=== PATIENT | female | born 1950 | race Caucasian/White ===

== ENCOUNTER → 2018-08-01 | Outpatient (CLI) | payer BC ==
[~2018-08-01] MED LIST: ASCO50TA PO; PROBCAP14 PO
--- NOTE | 2018-08-02 00:49 | ECGEPIP ---
Stationary ECG Study [facility] Test Date: 2018-08-01 Pat Name: MANNY SYED Department: Room: - Gender: F Can Tester: MCKAY : 1950 Requested By: LUIGI Gonzalez Order Number: [id number] Reading MD: Marcell Alarcon Measurements Intervals [place] Rate: 72 P: 51 HI: 177 QRS: 20 QRSD: 88 T: 56 QT: 368 QTc: 403 Interpretive Statements SINUS RHYTHM POSSIBLE SEPTAL MYOCARDIAL INFARCTION, PROBABLY OLD LOW-VOLTAGE QRS COMPLEXES IN THE LIMB LEADS NO PRIOR TRACING FOR COMPARISON Electronically Signed On 08-02-2018 0:48:41 EDT by Marcell Alarcon
== END ==
LOC: M EKG 16:18
PROVIDERS: ATTEND Anesthesiology
DX: Z01.818 Encounter for other preprocedural examination (principal)

== ENCOUNTER 2018-08-02 05:53 | Day surgery (SDC) | payer BC ==
[2018-08-02] VITALS (7 sets, daily range): BP systolic 99–115; BP diastolic 51–74
[~2018-08-02] VITALS: Ht 167.6 cm; Wt 59.9 kg
[2018-08-02] MEDS ORDERED: LIDOCAINE 1% MDV 20ML VIAL SQ PRN (06:00)
[2018-08-02 06:26] LABS: HEMATOCRIT 44.1 % (36.0-47.0); HEMOGLOBIN 14.3 g/dl (12.0-15.5); MEAN CORPUSCULAR HEMOGLOBIN 31.7 pg (27.0-33.0); MEAN CORPUSCULAR HGB CONC 32.4 g/dl (32.0-36.5); MEAN CORPUSCULAR VOLUME 97.8 fl (80.0-96.0); PLATELET COUNT, AUTOMATED 252 10^3/uL (150-450); RED BLOOD COUNT 4.51 10^6/uL (4.00-5.40); WHITE BLOOD COUNT 5.7 10^3/uL (4.0-10.0)
[2018-08-02] MEDS ORDERED: LR 1,000 ML IV SCH ×2 (06:30→12:00)
[2018-08-02] MEDS ORDERED: SCOPOLAMINE 1MG TRANSDERMAL PATCH As Ordered ONE (07:08)
[2018-08-02] MEDS ORDERED: ROCURONIUM BROMIDE 50 MG/5 ML VIAL As Ordered ONE (07:12)
[2018-08-02] MEDS ORDERED: LIDOCAINE 2% INJ 100 MG/5 ML SDV (FOR ANES.) As Ordered ONE (07:12)
[2018-08-02] MEDS ORDERED: fentaNYL 250 MCG/5 ML INJECTION (J3010) As Ordered ONE (07:12)
[2018-08-02] MEDS ORDERED: PROPOFOL 200 MG/20 ML VIAL As Ordered ONE (07:12)
[2018-08-02] MEDS ORDERED: MIDAZOLAM INJ 2 MG/2 ML VIAL (J2250) As Ordered ONE (07:12)
[2018-08-02] MEDS ORDERED: VASOPRESSIN INJ 20 UNITS/ML VIAL As Ordered ONE (07:16)
[2018-08-02] MEDS ORDERED: LR 1,000 ML IV ONE (07:30)
[2018-08-02] MEDS ORDERED: dexameTHASONE 4 MG/ML 1ML VIAL (J1100) As Ordered ONE (07:50)
[2018-08-02] MEDS ORDERED: PHENAZOPYRIDINE 100 MG TAB PO ONE (08:00)
[2018-08-02] MEDS ORDERED: ePHEDrine SULFATE 25 MG/5 ML(5MG/ML) SYRINGE As Ordered ONE (08:08)
[2018-08-02] MEDS ORDERED: SCOPOLAMINE 1MG TRANSDERMAL PATCH TOP ONE (08:15)
[2018-08-02] MEDS ORDERED: ONDANSETRON 4MG/2ML VIAL (J2405) As Ordered ONE (08:44)
[2018-08-02] MEDS ORDERED: GLYCOPYRROLATE INJ 0.2 MG/ML 2 ML VIAL As Ordered ONE (08:44)
[2018-08-02] MEDS ORDERED: METOCLOPRAMIDE INJ 10MG/2ML VIAL (J2765) As Ordered ONE (08:44)
[2018-08-02] MEDS ORDERED: KETOROLAC 60 MG/2 ML VIAL (J1885) As Ordered ONE (08:44)
[2018-08-02] MEDS ORDERED: NEOSTIGMINE 10 MG/10 ML VIAL (J2710) As Ordered ONE (08:48)
[2018-08-02] MEDS ORDERED: fentaNYL 100 MCG/2 ML INJECTION (J3010) As Ordered ONE (10:20)
[2018-08-02] MEDS ORDERED: MORPHINE 1MG/ML IN 0.9% NACL 100ML IV BAG As Ordered ONE (11:18)
[2018-08-02] MEDS ORDERED: ACETAMINOPHEN 1000MG 100ML IV BTL (OFIRMEV) (J0131 PER 10MG) As Ordered ONE (11:57)
[2018-08-02] MEDS ORDERED: NALOXONE INJ 0.4 MG/1 ML VIAL (J2310) IV PRN (12:00)
[2018-08-02] MEDS ORDERED: NALBUPHINE HCL 10 MG/ML AMP (J2300) IV PRN (12:00)
[2018-08-02] MEDS: LR 1,000 ML IV SCH ×2 (12:00→18:00)
[2018-08-02] MEDS ORDERED: diphenhydrAMINE INJ 50MG/ML VIAL (J1200) IV PRN (12:00)
[2018-08-02] MEDS ORDERED: fentaNYL 100 MCG/2 ML INJECTION (J3010) IV PRN (12:00)
[2018-08-02] MEDS ORDERED: ONDANSETRON 4MG/2ML VIAL (J2405) IV PRN (12:00)
[2018-08-02] MEDS ORDERED: IBUPROFEN 600 MG TAB PO PRN ×2 (12:00→15:00)
[2018-08-02] MEDS ORDERED: MORPHINE 1MG/ML IN 0.9% NACL 100ML IV BAG IV PRN (12:00)
[2018-08-02] MEDS ORDERED: EPIDURAL/PCA KEYS XX PRN (12:00)
[2018-08-02] MEDS ORDERED: PERCOCET 5MG/325MG TAB PO PRN (12:00)
[2018-08-02] MEDS ORDERED: ACETAMINOPHEN *IV* 1,000 MG IV ONE ×2 (12:45)
[2018-08-02] MEDS ORDERED: oxyCODONE 5MG TAB PO PRN (12:45)
--- NOTE | 2018-08-02 14:26 | RO ---
DATE OF PROCEDURE: 08/02/2018 PREPROCEDURE DIAGNOSES/INDICATION FOR SURGERY: Symptomatic prolapse, failed pessary. POSTPROCEDURE DIAGNOSES: Symptomatic prolapse, failed pessary. Additional diagnosis of large left ovarian cyst. PROCEDURE: Total vaginal hysterectomy with bilateral salpingectomy. The patient also then had a left oophorectomy with removal of the cyst. SURGEON: Dr. Urszula Prajapati TUG MASTER: None. ANESTHESIA: General endotracheal. DESCRIPTION OF PROCEDURE: Kenia was brought to the operating room where sufficient general endotracheal anesthesia was induced. She was prepped, draped and positioned in the usual sterile fashion with the bladder emptied and the anterior and posterior aspects of the cervix grasped with a single toothed tenaculum and a circumferential incision was made around the base of the cervix. The cardinal ligaments were isolated, clamped with De Salter clamps, transected and then ligated with #0 Vicryl suture, which was used throughout this portion of the case. Then clamped, transected and ligated the uterosacral ligaments, which were labeled for later reconnection to the cuff and entered the posterior reflection of the peritoneum and the anterior reflection of the peritoneum, displacing the bladder away from the field of dissection. We then carefully clamped, transected and ligated the uterine vasculature until the utero-ovarian ligaments were reached and the round ligaments were reached. These too were clamped, transected and ligated, but a large ovarian cyst was noted. This was brought down with the [place], and it was clear that this was attached to the left ovary. We went ahead and removed the right fallopian tube, the right ovary is just atrophic and barely existent, and then went back up to the left side where the ovary and tube were removed. This cystic lesion was mostly deflated. It did not appear to be leaking until we had removed it, so it did not have any fluid out of it, we did not actually rupture it during the case, it was already soft, which would of course make it not clearly palpable. There were also areas of left ovary that looked atrophic and typical for a 58-year-old. There did not appear to be any excrescences. There did not appear to be any external lesions and it was soft texture, certainly applied lack of internal interesting changes, but I did not open this in the operating room. I did not want any of that on my gloves if there was anything untoward. I did not see any ascites or any other peritoneal findings. We did look because of that finding. From the vaginal aspect, we certainly could not appreciate anything atypical. We then closed the peritoneum and closed any space for enterocele. I did the dissection to the right sacrospinous ligament for the sacrospinous ligament suspension. I then placed two anchors with what I believed at the time to be two #2-0 PDS, and placed those through the vaginal tissue after correcting the cystocele anteriorly with Vicryl, and then we closed the cuff and brought those tissues up and scoped her and saw that there were normal jets of urine bilaterally and good support and then I heard the team in the final count talking about Prolene. The entire case was brought to an abrupt halt and it was determined that I had been given Prolene and not PDS for those sutures, which were of course coming through and through to the vagina, and so all of the repair was broken down as far as all four of those sutures were removed. We then opened the cuff. We still left the anterior repair and closure of the peritoneum, but then redissected up to the ligament and placed two new anchors, so she does have four anchors, but only the four suture of #2-0 PDS delayed absorbable suture. This was then brought back out through the vaginal tissues and on the vaginal cuff reclosed and then resupported, and then she was rescoped, and again, fortunately, she had very good normal jets of urine and evidence of bladder support and no evidence of bladder injury with the anterior repair that we had done prior to lifting up the cuff. We then did a perineorrhaphy with a very short posterior repair, and then completed the case with a Bloom placed in the bladder before she was brought out of the operating room. She did have a little bit more bleeding with the hysterectomy than on average, but the cuff itself did not have significant bleeding with redissection. Estimated blood loss was about 300. Fluid replacement was crystalloid. COMPLICATIONS: She really did not have any complications other than having to repeat that portion of the case and remove those sutures so by the end of the case that was resolved. There was no evidence of injury to the bladder, bowel. Rectal examination at the end of the case was normal. CONDITION AND DISPOSITION: Kenia tolerated the procedure well and was recovering in the recovery room in good condition.
[2018-08-03] VITALS: BP 100/59
[2018-08-03] MEDS: LR 1,000 ML IV SCH (00:30)
[2018-08-03 04:00] VITALS: BP 98/54
[2018-08-03] MEDS ORDERED: NORCO, ANEXSIA 5/325MG TABLET (HYDROcodone/ACETAMINOPHEN) PO PRN (06:00)
[2018-08-03 07:10] LABS: HEMATOCRIT 29.6 % (36.0-47.0); HEMOGLOBIN 9.6 g/dl (12.0-15.5); MEAN CORPUSCULAR HEMOGLOBIN 32.2 pg (27.0-33.0); MEAN CORPUSCULAR HGB CONC 32.4 g/dl (32.0-36.5); MEAN CORPUSCULAR VOLUME 99.3 fl (80.0-96.0); PLATELET COUNT, AUTOMATED 190 10^3/uL (150-450); RED BLOOD COUNT 2.98 10^6/uL (4.00-5.40); WHITE BLOOD COUNT 14.1 10^3/uL (4.0-10.0)
[2018-08-03 08:00] VITALS: BP 103/55
== END 2018-08-03 09:50 | disposition home or self-care (01) ==
LOC: M SDC 05:53 → M PED 13:30 → M SDC 08-03 09:50
PROVIDERS: ATTEND Obstetrics & Gynecology
DX: N81.2 Incomplete uterovaginal prolapse (principal); D27.1 Benign neoplasm of left ovary; K21.9 Gastro-esophageal reflux disease without esophagitis; M12.9 Arthropathy, unspecified; M65.30 Trigger finger, unspecified finger; L40.9 Psoriasis, unspecified
CPT/HCPCS: 36415; 58262; 85027; 86850; 86900; 86901; 88307; C1713; J0131; J0690; J1100; J1885; J2250; J2405; J2710; J2765; J3010

== ENCOUNTER 2019-03-23 08:54 | Emergency (ER) | payer BC, MEDICARE ==
[~2019-03-23] VITALS: Ht 165.1 cm; Wt 59.7 kg
[2019-03-23 09:42] LABS: BILIRUBIN, URINE MANUAL OBSCURED (NEGATIVE); GLUCOSE, URINE (UA) MANUAL NEGATIVE (NEGATIVE); KETONE, URINE MANUAL OBSCURED mg/dL (NEGATIVE); UROBILINOGEN, URINE MANUAL OBSCURED mg/dl (NORMAL)
[2019-03-23 09:45] LABS: BASO # 0.1 10^3/uL (0.0-0.2); BASO % 0.4 % (0.0-1.0); EOS # 0.1 10^3/uL (0.0-0.5); EOS % 0.8 % (0.0-3.0); HEMATOCRIT 45.4 % (36.0-47.0); HEMOGLOBIN 14.3 g/dl (12.0-15.5); LYMPH # 0.9 10^3/uL (1.5-5.0); LYMPH % 7.1 % (24.0-44.0); MEAN CORPUSCULAR HEMOGLOBIN 30.7 pg (27.0-33.0); MEAN CORPUSCULAR HGB CONC 31.5 g/dl (32.0-36.5); MEAN CORPUSCULAR VOLUME 97.4 fl (80.0-96.0); MONO # 0.7 10^3/uL (0.0-0.8); MONO % 5.7 % (0.0-5.0); NEUTROPHILS % 85.7 % (36.0-66.0); PLATELET COUNT, AUTOMATED 275 10^3/uL (150-450); RED BLOOD COUNT 4.66 10^6/uL (4.00-5.40); WHITE BLOOD COUNT 12.9 10^3/uL (4.0-10.0)
[2019-03-23 09:51] LABS: RBC, URINE TNTC /hpf (0-3)
[2019-03-23 09:52] LABS: BACTERIA, URINE MOD AMOUNT; HYALINE CAST, URINE NONE SEEN /lpf (0-1); RENAL EPITHELIAL CELLS, URINE SMALL AMOUNT /hpf; SQUAMOUS EPITHELIAL CELL URINE NONE SEEN /hpf (SMALL AMT)
[2019-03-23 09:53] LABS: AMORPHOUS SEDIMENT, URINE SMALL AMOUNT (NEGATIVE)
[2019-03-23 10:25] LABS: BLOOD UREA NITROGEN 10 MG/DL (7-18); CALCIUM LEVEL 9.3 MG/DL (8.8-10.2); CARBON DIOXIDE LEVEL 27 MEQ/L (21-32); CHLORIDE LEVEL 107 MEQ/L (98-107); CREATININE FOR GFR 0.81 MG/DL (0.55-1.30); GLOMERULAR FILTRATION RATE > 60.0 (>45); GLUCOSE, FASTING 96 MG/DL (70-100); POTASSIUM SERUM 4.2 MEQ/L (3.5-5.1); SODIUM LEVEL 141 MEQ/L (136-145)
--- NOTE | 2019-03-23 11:04 | REP ---
Clinical: Hematuria with recent procedure. Technique: Real time guerrero scale and color ultrasound examination using curved array transducer. Findings: The bladder is under distended and without obvious wall thickening or bladder mass lesion. Bilateral ureteral jets are identified. Prevoid bladder measures 5.5 x 5.1 x 3.4 cm (50 ml). Complete emptying on postvoid images noted. Impression: Grossly unremarkable bladder ultrasound examination. Electronically Signed by Yves Fernandes MD 03/23/2019 10:55 A
[2019-03-23 11:05] VITALS: BP 125/67
[2019-03-23] MEDS ORDERED: PYRI1TAB5 PO (11:15)
[2019-03-23] MEDS ORDERED: MACR100C43 PO (11:15)
== END 2019-03-23 11:23 | disposition home or self-care (01) ==
LOC: M ED 08:54
DX: N39.0 Urinary tract infection, site not specified (principal); R31.9 Hematuria, unspecified; Z79.899 Other long term (current) drug therapy

== ENCOUNTER → 2019-04-05 | Outpatient (REF) | payer MEDICARE ==
[~2019-04-05] MED LIST changes: +MACR100C43 PO; +PYRI1TAB5 PO
[2019-04-05 16:54] LABS: AMORPHOUS SEDIMENT SMALL (NEGATIVE); APPEARANCE, URINE CLOUDY (CLEAR); BACTERIA, URINE AUTO 1+ (NEGATIVE); BILIRUBIN, URINE AUTO NEGATIVE (NEGATIVE); BLOOD, URINE BLOOD 1+ (NEGATIVE); COLOR, URINE YELLOW (YELLOW); GLUCOSE, URINE (UA) AUTO NEGATIVE (NEGATIVE); KETONE, URINE AUTO NEGATIVE (NEGATIVE); LEUKOCYTE ESTERASE, URINE AUTO 3+ (NEGATIVE); NITRITE, URINE AUTO NEGATIVE (NEGATIVE); PROTEIN, URINE AUTO 2+ mg/dL (NEGATIVE); RBC, URINE AUTO 38 /HPF (0-3); SPECIFIC GRAVITY URINE AUTO 1.014 (1.002-1.035); SQUAMOUS EPITHELIAL CELL UR AU 1 /HPF (0-6); UROBILINOGEN, URINE AUTO 0.2 mg/dL (0.0-2.0); WBC, URINE AUTO TNTC /HPF (0-3)
== END ==
LOC: M LAB REF 16:23
PROVIDERS: ATTEND Obstetrics & Gynecology
DX: N39.0 Urinary tract infection, site not specified (principal)

== ENCOUNTER → 2019-04-19 | Outpatient (CLI) | payer MEDICARE ==
--- NOTE | 2019-04-19 15:36 | REP ---
Right rib series: Seven views including PA chest. History: Contusion. Findings: PA chest radiograph shows no evidence of pneumothorax or hydrothorax. Mediastinum is not widened. Heart size is normal. The lung love are clear. There is diffuse osteopenia. Multiple views of the right ribcage show no visible rib fracture or bony destructive lesion. Impression: Diffuse osteoporosis. No rib fracture or bony destructive lesion seen. Electronically Signed by Aidan Ferguson MD 04/19/2019 03:27 P
== END ==
LOC: M WUC 12:08
PROVIDERS: ATTEND Physician Assistant
DX: S20.211A Contusion of right front wall of thorax, initial encounter (principal); M81.0 Age-related osteoporosis without current pathological fracture; X58.XXXA Exposure to other specified factors, initial encounter; Y92.9 Unspecified place or not applicable

== ENCOUNTER → 2019-05-14 | Outpatient (REF) | payer MEDICARE ==
[2019-05-14 17:09] LABS: APPEARANCE, URINE CLEAR (CLEAR); BACTERIA, URINE AUTO NEGATIVE (NEGATIVE); BILIRUBIN, URINE AUTO NEGATIVE (NEGATIVE); BLOOD, URINE BLOOD NEGATIVE (NEGATIVE); COLOR, URINE STRAW (YELLOW); GLUCOSE, URINE (UA) AUTO NEGATIVE (NEGATIVE); KETONE, URINE AUTO NEGATIVE (NEGATIVE); LEUKOCYTE ESTERASE, URINE AUTO NEGATIVE (NEGATIVE); NITRITE, URINE AUTO NEGATIVE (NEGATIVE); PROTEIN, URINE AUTO NEGATIVE (NEGATIVE); RBC, URINE AUTO 0 /HPF (0-3); SPECIFIC GRAVITY URINE AUTO 1.004 (1.002-1.035); SQUAMOUS EPITHELIAL CELL UR AU 0 /HPF (0-6); UROBILINOGEN, URINE AUTO 0.2 mg/dL (0.0-2.0); WBC, URINE AUTO 0 /HPF (0-3)
== END ==
LOC: M LAB REF 16:20
PROVIDERS: ATTEND Obstetrics & Gynecology
DX: R31.0 Gross hematuria (principal)

== ENCOUNTER → 2021-10-01 | Outpatient (REF) | payer MEDICARE | LOC: M LAB REF 15:36 | PROVIDERS: ATTEND Student in an Organized Health Care Education/Training Program | DX: R30.0 Dysuria (principal) ==

== ENCOUNTER → 2022-06-09 | Outpatient (REF) | payer MEDICARE ==
[2022-06-09 13:58] LABS: BASO # 0.1 10^3/uL (0.0-0.2); BASO % 0.9 % (0.0-1.0); EOS # 0.4 10^3/uL (0.0-0.5); EOS % 5.5 % (0.0-3.0); HEMATOCRIT 47.4 % (36.0-47.0); HEMOGLOBIN 14.8 g/dl (12.0-15.5); LYMPH # 1.6 10^3/uL (1.5-5.0); MEAN CORPUSCULAR HEMOGLOBIN 30.6 pg (27.0-33.0); MEAN CORPUSCULAR HGB CONC 31.2 g/dl (32.0-36.5); MEAN CORPUSCULAR VOLUME 97.9 fl (80.0-96.0); MONO # 0.5 10^3/uL (0.0-0.8); MONO % 7.1 % (2.0-8.0); NEUTROPHILS # 4.2 10^3/uL (1.5-8.5); NEUTROPHILS % 63.1 % (36.0-66.0); PLATELET COUNT, AUTOMATED 183 10^3/uL (150-450); RED BLOOD COUNT 4.84 10^6/uL (4.00-5.40); WHITE BLOOD COUNT 6.7 10^3/uL (4.0-10.0)
[2022-06-09 14:00] LABS: ALKALINE PHOSPHATASE 97 U/L (46-116); ALT/SGPT 22 U/L (7.0-40); AST/SGOT 21 U/L (<34); BILIRUBIN,TOTAL 1.1 MG/DL (0.3-1.2); BLOOD UREA NITROGEN 13 MG/DL (9-23); CALCIUM LEVEL 9.2 MG/DL (8.3-10.6); CARBON DIOXIDE LEVEL 29 MMOL/L (20-31); CHLORIDE LEVEL 105 MMOL/L (98-107); CHOLESTEROL LEVEL 272 MG/DL (<200); CHOLESTEROL RISK RATIO 4.05 (<5); CREATININE FOR GFR 0.75 MG/DL (0.55-1.30); GLOMERULAR FILTRATION RATE > 60.0 (>39); GLUCOSE, FASTING 85 MG/DL (74-106); HDL CHOLESTEROL 67.1 MG/DL (>40); LDL CHOLESTEROL 185.3 MG/DL (<100); NON-HDL-C 204.9 MG/DL; POTASSIUM SERUM 4.7 MMOL/L (3.5-5.1); SODIUM LEVEL 139 MMOL/L (136-145); TOTAL PROTEIN 7.1 G/DL (5.7-8.2); TRIGLYCERIDES LEVEL 98 MG/DL (<150)
[2022-06-09 14:02] LABS: THYROID STIMULATING HORMONE 2.705 uIU/ML (0.55-4.78)
[2022-06-09 14:03] LABS: TOTAL 25(OH) VITAMIN D 32.4 NG/ML (20.0-100.0)
[2022-06-09 17:55] LABS: HEMOGLOBIN A1c 5.4 % (4.0-6.0)
== END ==
LOC: M LAB REF 12:27
PROVIDERS: ATTEND Nurse Practitioner Family
DX: E55.9 Vitamin D deficiency, unspecified (principal); R53.83 Other fatigue; Z68.20 Body mass index [BMI] 20.0-20.9, adult; Z79.899 Other long term (current) drug therapy

== ENCOUNTER → 2022-07-06 | Outpatient (CLI) | payer MEDICARE | LOC: M WHC 12:53 | PROVIDERS: ATTEND Nurse Practitioner Family | DX: Z12.31 Encounter for screening mammogram for malignant neoplasm of breast (principal) ==

== ENCOUNTER → 2022-08-25 | Outpatient (REF) | payer MEDICARE ==
[2022-08-25 17:37] LABS: HEMOGLOBIN A1c 5.2 % (4.0-6.0)
== END ==
LOC: M LAB REF 16:34
PROVIDERS: ATTEND Nurse Practitioner Family
DX: E55.9 Vitamin D deficiency, unspecified (principal); R89.9 Unspecified abnormal finding in specimens from other organs, systems and tissues; Z79.899 Other long term (current) drug therapy

== ENCOUNTER → 2023-07-11 | Outpatient (CLI) | payer MEDICARE | LOC: M WHC 13:55 | PROVIDERS: ATTEND Nurse Practitioner Family | DX: M81.0 Age-related osteoporosis without current pathological fracture (principal); M85.852 Other specified disorders of bone density and structure, left thigh; Z13.820 Encounter for screening for osteoporosis ==

== ENCOUNTER → 2023-07-11 | Outpatient (CLI) | payer MEDICARE | LOC: M WHC 13:54 | PROVIDERS: ATTEND Nurse Practitioner Family | DX: Z12.31 Encounter for screening mammogram for malignant neoplasm of breast (principal); R92.323 Mammographic fibroglandular density, bilateral breasts ==